=== PATIENT | male | born 1955 | race Caucasian/White ===

== ENCOUNTER 2018-12-10 06:54 | Day surgery (SDC) | payer OTHER ==
[~2018-12-10] VITALS: Ht 170.2 cm; Wt 80.0 kg
[2018-12-10] VITALS (15 sets, daily range): BP systolic 141–165; BP diastolic 77–93; PULSE 46–61; RESP 11–16; Ht 170.2 cm; Wt 80.0 kg
[2018-12-10] MEDS ORDERED: SOD CHLORIDE 0.9% 1,000 ML IV SCH (07:00)
[2018-12-10] MEDS ORDERED: SEVOFLURANE 15 MIN ONE (07:00)
[2018-12-10] MEDS ORDERED: CEFAZOLIN 1 GM INJ ONE (07:00)
[2018-12-10] MEDS ORDERED: CEFAZOLIN 2 GM/50 ML (PMX) 50 ML IVPB ONE (07:00)
[2018-12-10] MEDS ORDERED: LISI10TA2 PO (07:30)
[2018-12-10] MEDS ORDERED: AMLO5TAB4 PO (07:31)
--- NOTE | 2018-12-10 09:01 | PREAC ---
Date/Time of Note Date/Time of Note DATE: 12/10/18 TIME: 09:00 Anesthesia Eval and Record Evaluation Time Pre-Procedure Interview DATE: 12/10/18 TIME: 09:00 Age 63 Sex male NPO: 8 hrs Preoperative diagnosis inguinal hernia Planned procedure open inguinal hernia repair Past Medical History Past Medical History: Includes Cardio: HTN Surgery & Anesthesia Issues No known issue Meds Anticoagulation: No Beta Leslie within 24 hr: No Reason Beta Leslie not given: Pt. not on B-Leslie Reported Medications Amlodipine Besylate* (Norvasc*) 5 Mg Tablet, 5 MG PO DAILY, TAB 12/10/18 Lisinopril* (Lisinopril*) 10 Mg Tablet, 10 MG PO DAILY, #30 TAB 12/10/18 Current Medications Sodium Chloride 1,000 ml @ 75 mls/hr [id number] IV ; Start 12/10/18 at 07:00; Stop 12/10/18 at 20:19 Meds reviewed: Yes Allergies Coded Allergies: No Known Drug Allergies (Unverified Allergy, Unknown, 12/10/18) Allergies Reviewed: Yes Labs/Studies Labs Reviewed: Reviewed by anesthesiologist test: N/A Pre-procedure Exam Last vitals Vital Signs Date Temp Pulse Resp B/P (MAP) Pulse Ox O2 O2 Flow FiO2 Time Delivery Rate 12/10/18 97.5 61 16 159/77 98 Room Air 07:53 (104) Airway: Adequate mouth opening, Adequate thyromental dist Mallampati: Mallampati IV Teeth: Normal Lung: Normal Heart: Normal ASA Physical Status ASA physical status: 2 Emergency: None Pre-operative Attestations Prior to commencing anesthesia and surgery, the patient was re-evaluated, there was verification of: *The patient's identity *The results of appropriate recent lab work and preoperative vital signs *The above evaluation not changing prior to induction *Anesthetic plan, risk benefits, alternative and complications discussed with patient/family; questions answered; patient/family understands, accepts and wishes to proceed. EILEEN POPE DO Dec 10, 2018 09:01
[2018-12-10] MEDS ORDERED: LIDOCAINE 1% (MDV) 20 ML INJ ONE (09:05)
[2018-12-10] MEDS ORDERED: ETOMIDATE 20 MG INJ ONE (09:05)
[2018-12-10] MEDS ORDERED: PROPOFOL 20 ML ONE (09:05)
[2018-12-10] MEDS ORDERED: ROPIVACAINE 0.5 % 30 ML VIAL ONE (09:07)
[2018-12-10] MEDS ORDERED: POLYMYXIN/BACITRACIN 1L IRRIG ONE (09:11)
[2018-12-10] MEDS ORDERED: ONDANSETRON 4 MG INJ ONE ×2 (09:21→10:14)
[2018-12-10] MEDS ORDERED: FENTAnyl 50 MCG/ML VIAL ONE (09:21)
--- NOTE | 2018-12-10 09:24 | NUR ---
C/O PAIN 05/19 .DILAUDID0.4MG IV GIVEN.
--- NOTE | 2018-12-10 10:06 | OPR ---
Date/Time of Note Date/Time of Note DATE: 12/10/18 TIME: 10:04 Operative Report Procedure Date: Dec 10, 2018 Preoperative Diagnosis right incarcerated inguinal hernia Postoperative Diagnosis same Operation/Procedure Performed open right incarcerated inguinal hernia repair with large ultrapro plug mesh Surgeon see signature line Limited Radiology Technician none Anesthesia Type: general Estimated Blood Loss: 0 - 10 ml's Transfusion none Specimen none Grafts/Implants none Complications none Pt Condition Post Procedure: stable Indications This is a 63-year-old male with an incarcerated right inguinal hernia. He requires surgical repair. Risks alternatives benefits and personnel were discussed the patient. Patient expressed understanding consents to the operation. Procedure Description Patient is taken to the OR and prepped and draped in usual sterile fashion. Surgical time was performed. IV antibiotics given. Right inguinal oblique incision is made with a 10 blade. Dissection with cautery was carried down to the extremity fascia. The external fascia was opened with a 15 blade. This incision was extended medially inferiorly and lateral superiorly with Metzenbaum scissors. Cord structures identified and encircled with a Dre drain. Very large incarcerated indirect inguinal hernia is identified lysis of adhesions performed and the hernia was manually reduced. The plug portion of the ultra pro plug mesh system is placed in this defect and secured with a running 0 Prolene from the pubic tubercle along the shelving edge of the inguinal ligament. Superiorly the plug was secured to enter oblique with interrupted 3-0 Vicryl. Onlay mesh is secured in a similar fashion with a running 0 Prolene from the pubic tubercle along the shelving single limit. Straps are created and reapproximated around the cord structures with interrupted 0 Prolene to recreate the inguinal ring. Onlay mesh is secured to enter oblique with interrupted 3-0 Vicryl. Externally fascia is closed with running 3-0 Vicryl. Jason's fascia is closed with interrupted 3-0 Vicryl. Skin is closed using a inzorb observable skin stapler. A tap block was provided by the anesthesiologist. Dry dressings were applied. Marek CERNA Dec 10, 2018 10:06
--- NOTE | 2018-12-10 10:06 | NUR ---
RECEIVED PATIENT FROM OR [facility]IA [facility] S/P RIGHT OPEN INGUINAL HERNIA REPAIR UNDER GENERAL ANESTHWESIA WITH INCISION TO RIGHT INGUINAL COVERED WITH GAUGE,KERLIX AND CLOTH TAPE DRY AND INTACT .PATIENT AWAKE .ON ROOM AIR .SB HR 46. O2 SAT 95 ON RA.
[2018-12-10] MEDS ORDERED: HYDROmorphONE 1 MG/5 ML IV SYRINGE IV ONE (10:14)
--- NOTE | 2018-12-10 10:15 | PAC ---
Date/Time of Note Date/Time of Note DATE: 12/10/18 TIME: 10:14 Post-Anesthesia Notes Post-Anesthesia Note Last documented vital signs Vital Signs Date Temp Pulse Resp B/P (MAP) Pulse Ox O2 O2 Flow FiO2 Time Delivery Rate 12/10/18 98.7 50 14 160/75 100 1014 12/10/18 61 16 159/77 98 Room Air 07:53 (104) Activity: WNL Respiratory function: WNL Cardiovascular function: WNL Mental status: Baseline Pain reasonably controlled: Yes Hydration appropriate: Yes Nausea/Vomiting absent: Yes EILEEN POPE DO Dec 10, 2018 10:15
[2018-12-10] MEDS ORDERED: HYDROmorphONE 1 MG/5 ML IV SYRINGE IV PRN (10:25)
[2018-12-10] MEDS: HYDROmorphONE 1 MG/5 ML IV SYRINGE IV PRN ×2 (10:28→10:35)
[2018-12-10] MEDS ORDERED: HYDROCODONE/APAP (5/325) TAB PO ONE (10:30)
--- NOTE | 2018-12-10 10:33 | NUR ---
PAIN STILL AT 5/10 DILAUDID0.4MG IV GIVEN
--- NOTE | 2018-12-10 10:54 | NUR ---
PAIN CONTROLLED TO GOAL LEVEL 3/10.
--- NOTE | 2018-12-10 11:22 | NUR ---
TRANSFERRED TO [facility] IN STABLE CONDITION .INCISION DRESSING DRY AND INTACT .NO SIGN OF BLEEDING .BP WELL CONTROLLED . PAIN CONTROLLED TO PATIENTS GOAL LEVEL .REPORT GIVEN TO EASTON .FAMILY INFORMED.
[2018-12-10] MEDS ORDERED: hydrALAzine 20 MG INJ IV ONE (11:30)
== END 2018-12-10 12:38 | disposition home or self-care (01) ==
LOC: SDS 06:54
PROVIDERS: ATTEND Surgery
DX: K40.30 Unilateral inguinal hernia, with obstruction, without gangrene, not specified as recurrent (principal); I10 Essential (primary) hypertension
CPT/HCPCS: 49507; J0360; J1170; J2405; J2795; J3010; Z7610; C1781; J0690